=== PATIENT | male | born 1990 | race Asian ===

== ENCOUNTER 2023-09-09 10:53 | Emergency (ER) | payer OTHER ==
[~2023-09-09] VITALS: Ht 167.6 cm; Wt 69.0 kg
[2023-09-09 11:43] VITALS: BP 125/81; PULSE 90; RESP 16; TEMP 99; O2SAT 99
[2023-09-09] MEDS ORDERED: CIPR0.3S67 OP (12:15)
== END 2023-09-09 12:39 | disposition home or self-care (01) ==
LOC: ER 10:53
DX: S05.91XA Unspecified injury of right eye and orbit, initial encounter (principal); H57.8A1 Foreign body sensation, right eye; X58.XXXA Exposure to other specified factors, initial encounter; Y93.89 Activity, other specified; Y92.89 Other specified places as the place of occurrence of the external cause; Y99.0 Civilian activity done for income or pay